=== PATIENT | male | born 1965 | race Caucasian/White ===

== ENCOUNTER 2022-08-20 05:21 | Inpatient (IN) | payer BC ==
[~2022-08-20] VITALS: Ht 188 cm; Wt 154.2 kg
[2022-08-20 05:48] VITALS: BP_SYST 127
[2022-08-20] MEDS ORDERED: NACL 0.9% 1,000 ML IV ONE (06:30)
[2022-08-20] MEDS ORDERED: MORPHINE 4 MG INJ. 4 MG/ML VIAL IVP ONE (06:30)
[2022-08-20] MEDS ORDERED: ONDANSETRON HCL 4 MG/2 ML VIAL ONE (06:44)
[2022-08-20] MEDS ORDERED: ONDANSETRON HCL 4 MG/2 ML VIAL IVP ONE (06:45)
[2022-08-20 07:01] LABS: BASOPHILS % (AUTO) 0.1 % (0.0-2.0); EOSINOPHILS % (AUTO) 0.1 % (0.0-4.0); HEMATOCRIT 44.1 % (36-54); LYMPHOCYTES % (AUTO) 7.8 % (20.5-51.5); MEAN CORPUSCULAR HEMOGLOBIN 30 pg (27-31); MEAN CORPUSCULAR HGB CONC 34 % (32-36); MEAN CORPUSCULAR VOLUME 87 fL (79.0-98.0); MONOCYTES # (AUTO) 2.5 K/uL (0.0-1.0); NEUTROPHILS # (AUTO) 9.6 K/uL (1.8-7.7); PLATELET COUNT (AUTO) 291 K/uL (130-430); RED BLOOD CELL COUNT(AUTO) 5.07 MIL/uL (4.2-6.2); RED CELL DISTRIBUTION WIDTH 15.6 % (9.0-15.0); WHITE BLOOD COUNT (AUTO) 13.2 K/uL (4.8-10.8)
[2022-08-20 07:04] LABS: CALCIUM 8.9 mg/dL (8.4-11.0); CREATININE 1.4 mg/dL (0.55-1.30)
[2022-08-20 07:08] LABS: ALBUMIN 3.2 g/dL (3.4-4.8); TOTAL BILIRUBIN 1.3 mg/dL (0.0-1.0)
[2022-08-20] MEDS ORDERED: fentaNYL CITRATE/PF 100 MCG/2 ML AMP IVP ONE (09:00)
[2022-08-20] MEDS ORDERED: MIDAZOLAM HCL 5 MG/5 ML VIAL IVP ONE (09:30)
[2022-08-20] MEDS ORDERED: D5/0.45 NS 1,000 ML IV ONE (09:45)
[2022-08-20] MEDS ORDERED: NALOXONE HCL 0.4 MG/ML AMP (NARCAN) IVP PRN ×6 (11:15→14:15)
[2022-08-20] MEDS ORDERED: MORPHINE 4 MG INJ. 4 MG/ML VIAL IVP PRN (11:15)
[2022-08-20] MEDS ORDERED: ONDANSETRON HCL 4 MG/2 ML VIAL IVP PRN ×2 (11:15→14:15)
[2022-08-20 11:46] VITALS: BP_SYST 113
[2022-08-20 11:55] LABS: PROTHROMBIN TIME 10.9 SECS (9.5-12.5)
[2022-08-20] MEDS ORDERED: PHENYLEPHRINE HCL 10 MG/ML VIAL (NEOSYNEPHRINE) ONE (12:00)
[2022-08-20] MEDS ORDERED: LR 1,000 ML IV.SOLN IV ONE (12:00)
[2022-08-20] MEDS ORDERED: ROCURONIUM BROMIDE 10 MG/ML (ZEMURON) ONE (12:00)
[2022-08-20] MEDS ORDERED: SUGAMMADEX SODIUM 200 MG/2 ML VIAL IV ONE (12:00)
[2022-08-20] MEDS ORDERED: ePHEDrine sulfate 50 MG/ML VIAL ONE (12:00)
[2022-08-20] MEDS ORDERED: HYDROmorphone 2 MG/ML VIAL ONE (12:00)
[2022-08-20] MEDS ORDERED: BUPIVACAINE /EPINEPHRINE/PF 0.25% 30 ML VIAL ONE (12:00)
[2022-08-20] MEDS ORDERED: NS IRRIG SOLN 1000 ML IR ONE (12:00)
[2022-08-20] MEDS ORDERED: DEXAMETHASONE SOD PHOSPHATE 4 MG/ML VIAL ONE (12:00)
[2022-08-20] MEDS ORDERED: SUCCINYLCHOLINE CHLORIDE 20 MG/ML(QUELICIN) ONE (12:00)
[2022-08-20] MEDS ORDERED: SEVOFLURANE 15 MIN GAS INH ONE (12:00)
[2022-08-20] MEDS ORDERED: ceFAZolin SODIUM 1 GM VIAL ONE (12:00)
[2022-08-20] MEDS ORDERED: PROPOFOL 200MG/ 20ML VIAL (DIPRIVAN) IV ONE (12:00)
[2022-08-20 12:01] LABS: BILIRUBIN,URINE NEGATIVE (NEGATIVE); CLARITY/URINE CLEAR (CLEAR); COLOR,URINE YELLOW (YELLOW); GLUCOSE,URINE NEGATIVE (NEGATIVE); KETONES,URINE TRACE (NEGATIVE); LEUKOCYTE ESTERASE ,URINE NEGATIVE (NEGATIVE); NITRITE, URINE NEGATIVE (NEGATIVE); PROTEIN URINE NEGATIVE (NEGATIVE); UROBILINOGEN,URINE 0.2 (0.2-1.0)
[2022-08-20 12:18] LABS: BLOOD, URINE TRACE (NEGATIVE)
[2022-08-20 12:20] LABS: BACTERIA,URINE None Seen /HPF (None Seen); WBC,URINE 0-3 /HPF (0-3)
[2022-08-20] MEDS ORDERED: HYDROmorphone 2 MG/ML VIAL IVP PRN (14:15)
[2022-08-20] MEDS ORDERED: LR 1,000 ML IV SCH (14:15)
[2022-08-20] MEDS ORDERED: HYDROmorphone 1 MG/ML INJ. CARTRIDGE IVP PRN ×2 (14:15)
[2022-08-20 14:32] VITALS: BP_SYST 119
[2022-08-20] MEDS ORDERED: HYDROmorphone 1 MG/ML INJ. CARTRIDGE ONE (14:45)
[2022-08-20 16:00] VITALS: BP_SYST 117
[2022-08-20] MEDS: CEFAZOLIN 1 GM IVPB PREMIX 50 ML IV SCH ×2 (16:40→22:01)
[2022-08-20] MEDS: D5NS 1,000 ML IV SCH (16:44)
[2022-08-20] MEDS: MORPHINE 2 MG/ML INJ. SYRINGE IVP PRN ×2 (17:55→22:17)
[2022-08-20 20:00] VITALS: BP_SYST 145
[2022-08-20] MEDS: HYDROmorphone 1 MG/ML INJ. CARTRIDGE IVP PRN (20:01)
[2022-08-20] MEDS: ONDANSETRON HCL 4 MG/2 ML VIAL IVP PRN (22:21)
[2022-08-21] MEDS: HYDROmorphone 1 MG/ML INJ. CARTRIDGE IVP PRN ×2 (00:21→08:51)
[2022-08-21 00:27] VITALS: BP_SYST 124
[2022-08-21] MEDS: MORPHINE 2 MG/ML INJ. SYRINGE IVP PRN ×3 (05:12→21:31)
[2022-08-21] MEDS: ONDANSETRON HCL 4 MG/2 ML VIAL IVP PRN ×4 (05:13→21:32)
[2022-08-21 07:28] LABS: HEMATOCRIT 40.5 % (36-54); HEMOGLOBIN 13.8 g/dL (14.0-18.0); MEAN CORPUSCULAR HEMOGLOBIN 30 pg (27-31); MEAN CORPUSCULAR HGB CONC 34 % (32-36); MEAN CORPUSCULAR VOLUME 88 fL (79.0-98.0); PLATELET COUNT (AUTO) 274 K/uL (130-430); RED BLOOD CELL COUNT(AUTO) 4.64 MIL/uL (4.2-6.2); RED CELL DISTRIBUTION WIDTH 16.1 % (9.0-15.0); WHITE BLOOD COUNT (AUTO) 6.8 K/uL (4.8-10.8)
[2022-08-21 08:09] VITALS: BP_SYST 124
[2022-08-21 08:27] LABS: ALBUMIN 2.5 g/dL (3.4-4.8); CALCIUM 8.2 mg/dL (8.4-11.0); CREATININE 1.04 mg/dL (0.55-1.30); PHOSPHORUS 2.8 mg/dL (2.7-4.5); TOTAL BILIRUBIN 1.4 mg/dL (0.0-1.0)
[2022-08-21] MEDS: D5NS 1,000 ML IV SCH ×2 (08:56→21:31)
[2022-08-21 09:52] LABS: BAND % (MANUAL) 22 % (0-6); BASOPHILS % (MANUAL) 0 % (0-2); EOSINOPHILS % (MANUAL) 0 % (0-7); LYMPHOCYTES % (MANUAL) 23 % (20-46); MONOCYTES % (MANUAL) 3 % (0-11)
[2022-08-21 11:54] VITALS: BP_SYST 117
[2022-08-21] MEDS: HYDROcodone/ACETAMIN 5-325 MG TAB (NORCO/ VICODIN) PO PRN (16:43)
[2022-08-21] MEDS ORDERED: ACETAMINOPHEN 325 MG TABLET PO PRN ×2 (16:45→17:00)
[2022-08-21 16:50] VITALS: BP_SYST 120
[2022-08-21 20:00] VITALS: BP_SYST 129
[2022-08-22 03:00] VITALS: BP_SYST 129
[2022-08-22] MEDS: OXYCODONE/ACETAMINOPHEN 5-325 TABLET PO PRN ×2 (03:35→21:29)
[2022-08-22] MEDS: D5NS 1,000 ML IV SCH (06:15)
[2022-08-22 07:02] LABS: CALCIUM 7.2 mg/dL (8.4-11.0); CREATININE 0.95 mg/dL (0.55-1.30)
[2022-08-22 07:14] LABS: BASOPHILS % (AUTO) 0.1 % (0.0-2.0); EOSINOPHILS # (AUTO) 0.1 K/uL (0.0-0.4); EOSINOPHILS % (AUTO) 1.4 % (0.0-4.0); HEMATOCRIT 37.1 % (36-54); HEMOGLOBIN 12.6 g/dL (14.0-18.0); LYMPHOCYTES # (AUTO) 0.8 K/uL (1.0-5.5); MEAN CORPUSCULAR HEMOGLOBIN 30 pg (27-31); MEAN CORPUSCULAR HGB CONC 34 % (32-36); MEAN CORPUSCULAR VOLUME 87 fL (79.0-98.0); MONOCYTES # (AUTO) 1.6 K/uL (0.0-1.0); MONOCYTES % (AUTO) 18.5 % (1.7-9.3); NEUTROPHILS # (AUTO) 6.3 K/uL (1.8-7.7); PLATELET COUNT (AUTO) 251 K/uL (130-430); RED BLOOD CELL COUNT(AUTO) 4.25 MIL/uL (4.2-6.2); RED CELL DISTRIBUTION WIDTH 15.6 % (9.0-15.0); WHITE BLOOD COUNT (AUTO) 8.8 K/uL (4.8-10.8)
[2022-08-22 08:00] VITALS: BP_SYST 132
[2022-08-22] MEDS: HYDROcodone/ACETAMIN 5-325 MG TAB (NORCO/ VICODIN) PO PRN ×3 (08:34→13:34)
[2022-08-22 10:47] VITALS: BP_SYST 132
[2022-08-22 12:00] VITALS: BP_SYST 124
[2022-08-22] MEDS: PIPERACILLIN/TAZO 3.375/DEX-IS 50 ML IV SCH ×2 (13:00→18:51)
[2022-08-22 20:00] VITALS: BP_SYST 129
[2022-08-23] MEDS: PIPERACILLIN/TAZO 3.375/DEX-IS 50 ML IV SCH ×4 (00:38→17:42)
[2022-08-23 00:39] VITALS: BP_SYST 123
[2022-08-23] MEDS: ONDANSETRON HCL 4 MG/2 ML VIAL IVP PRN (00:39)
[2022-08-23] MEDS: MORPHINE 2 MG/ML INJ. SYRINGE IVP PRN (00:42)
[2022-08-23] MEDS: OXYCODONE/ACETAMINOPHEN 5-325 TABLET PO PRN ×4 (06:16→19:34)
[2022-08-23] MEDS: D5NS 1,000 ML IV SCH ×2 (06:20→09:29)
[2022-08-23] MEDS ORDERED: POTASSIUM CHLORIDE 20 MEQ TAB.PRT.SR PO ONE (06:45)
[2022-08-23 07:32] LABS: HEMATOCRIT 38.4 % (36-54); WHITE BLOOD COUNT (AUTO) 10.5 K/uL (4.8-10.8)
[2022-08-23 07:45] LABS: BASOPHILS % (AUTO) 0.2 % (0.0-2.0); EOSINOPHILS # (AUTO) 0.2 K/uL (0.0-0.4); EOSINOPHILS % (AUTO) 2.1 % (0.0-4.0); HEMOGLOBIN 12.8 g/dL (14.0-18.0); LYMPHOCYTES # (AUTO) 0.9 K/uL (1.0-5.5); LYMPHOCYTES % (AUTO) 8.7 % (20.5-51.5); MEAN CORPUSCULAR HEMOGLOBIN 29 pg (27-31); MEAN CORPUSCULAR HGB CONC 33 % (32-36); MEAN CORPUSCULAR VOLUME 88 fL (79.0-98.0); MONOCYTES # (AUTO) 1.4 K/uL (0.0-1.0); MONOCYTES % (AUTO) 13.5 % (1.7-9.3); NEUTROPHILS # (AUTO) 7.9 K/uL (1.8-7.7); NEUTROPHILS % (AUTO) 75.5 % (40.0-70.0); PLATELET COUNT (AUTO) 290 K/uL (130-430); RED BLOOD CELL COUNT(AUTO) 4.36 MIL/uL (4.2-6.2); RED CELL DISTRIBUTION WIDTH 15.5 % (9.0-15.0)
[2022-08-23 08:02] VITALS: BP_SYST 133
[2022-08-23 08:28] LABS: CREATININE 0.88 mg/dL (0.55-1.30)
[2022-08-23 08:48] LABS: ERYTHROCYTE SEDIMENTATION RATE 78 MM/HR (0-15)
[2022-08-23 10:09] LABS: C-REACTIVE PROTEIN QUANT 28.6 mg/dL (0-0.5)
[2022-08-23 11:34] VITALS: BP_SYST 135
[2022-08-23 15:28] VITALS: BP_SYST 130
[2022-08-23] MEDS ORDERED: ALBUTEROL SULFATE 0.083% 2.5 MG/3 ML VIAL.NEB INH PRN (16:00)
[2022-08-23 20:00] VITALS: BP_SYST 126
[2022-08-24] MEDS: PIPERACILLIN/TAZO 3.375/DEX-IS 50 ML IV SCH ×2 (00:17→05:22)
[2022-08-24] MEDS: OXYCODONE/ACETAMINOPHEN 5-325 TABLET PO PRN ×4 (00:17→16:09)
[2022-08-24] MEDS: D5NS 1,000 ML IV SCH ×3 (00:18→20:41)
[2022-08-24 00:48] VITALS: BP_SYST 132
[2022-08-24 07:00] LABS: BASOPHILS % (AUTO) 0.3 % (0.0-2.0); EOSINOPHILS # (AUTO) 0.3 K/uL (0.0-0.4); EOSINOPHILS % (AUTO) 3.3 % (0.0-4.0); HEMATOCRIT 36.6 % (36-54); HEMOGLOBIN 12.4 g/dL (14.0-18.0); LYMPHOCYTES % (AUTO) 10.3 % (20.5-51.5); MEAN CORPUSCULAR HEMOGLOBIN 30 pg (27-31); MEAN CORPUSCULAR HGB CONC 34 % (32-36); MEAN CORPUSCULAR VOLUME 88 fL (79.0-98.0); MONOCYTES # (AUTO) 1.3 K/uL (0.0-1.0); MONOCYTES % (AUTO) 13.2 % (1.7-9.3); NEUTROPHILS # (AUTO) 7.3 K/uL (1.8-7.7); NEUTROPHILS % (AUTO) 72.9 % (40.0-70.0); PLATELET COUNT (AUTO) 284 K/uL (130-430); RED BLOOD CELL COUNT(AUTO) 4.14 MIL/uL (4.2-6.2); RED CELL DISTRIBUTION WIDTH 15.7 % (9.0-15.0)
[2022-08-24 07:29] VITALS: BP_SYST 149
[2022-08-24 07:42] LABS: CALCIUM 8.2 mg/dL (8.4-11.0); CREATININE 0.93 mg/dL (0.55-1.30)
[2022-08-24 08:07] LABS: C-REACTIVE PROTEIN QUANT 23.7 mg/dL (0-0.5)
[2022-08-24 08:23] LABS: ERYTHROCYTE SEDIMENTATION RATE 84 MM/HR (0-15)
[2022-08-24] MEDS ORDERED: POTASSIUM CHLORIDE 20 MEQ TAB.PRT.SR PO ONE (09:45)
[2022-08-24] MEDS ORDERED: OXYC-128 PO ×2 (09:46)
[2022-08-24] MEDS ORDERED: HYDR-3919 PO ×2 (09:46)
[2022-08-24] MEDS ORDERED: LEVO750T64 PO ×2 (09:46)
[2022-08-24 12:00] VITALS: BP_SYST 154
[2022-08-24] MEDS: ONDANSETRON HCL 4 MG/2 ML VIAL IVP PRN (13:40)
[2022-08-24 16:22] VITALS: BP_SYST 155
[2022-08-24] MEDS ORDERED: traZODone HCL 50 MG TABLET (DESYREL) PO PRN (16:45)
[2022-08-24] MEDS: LACTOBACILLUS RHAMNOSUS GG 1 CAP CAPSULE PO SCH (20:40)
[2022-08-24 20:41] VITALS: BP_SYST 127
[2022-08-25] VITALS: BP_SYST 135
[2022-08-25] MEDS: HYDROcodone/ACETAMIN 5-325 MG TAB (NORCO/ VICODIN) PO PRN ×2 (03:52→10:53)
[2022-08-25 07:21] LABS: BASOPHILS % (AUTO) 0.2 % (0.0-2.0); EOSINOPHILS # (AUTO) 0.3 K/uL (0.0-0.4); EOSINOPHILS % (AUTO) 2.9 % (0.0-4.0); HEMATOCRIT 36.7 % (36-54); HEMOGLOBIN 12.2 g/dL (14.0-18.0); MEAN CORPUSCULAR HEMOGLOBIN 30 pg (27-31); MEAN CORPUSCULAR HGB CONC 33 % (32-36); MEAN CORPUSCULAR VOLUME 89 fL (79.0-98.0); MONOCYTES % (AUTO) 9.3 % (1.7-9.3); NEUTROPHILS # (AUTO) 8.1 K/uL (1.8-7.7); PLATELET COUNT (AUTO) 297 K/uL (130-430); RED BLOOD CELL COUNT(AUTO) 4.12 MIL/uL (4.2-6.2); RED CELL DISTRIBUTION WIDTH 15.7 % (9.0-15.0); WHITE BLOOD COUNT (AUTO) 10.4 K/uL (4.8-10.8)
[2022-08-25 07:49] VITALS: BP_SYST 112; BP_SYST 120
[2022-08-25 08:12] LABS: ALBUMIN 1.9 g/dL (3.4-4.8); C-REACTIVE PROTEIN QUANT 21.3 mg/dL (0-0.5); CALCIUM 8.3 mg/dL (8.4-11.0); CREATININE 0.89 mg/dL (0.55-1.30); TOTAL BILIRUBIN 0.7 mg/dL (0.0-1.0)
[2022-08-25] MEDS: LACTOBACILLUS RHAMNOSUS GG 1 CAP CAPSULE PO SCH (08:12)
[2022-08-25 08:16] LABS: NEUTROPHILS % (AUTO) 77.6 % (40.0-70.0)
[2022-08-25] MEDS ORDERED: LACT1CAP57 PO ×3 (09:57→15:00)
[2022-08-25] MEDS: OXYCODONE/ACETAMINOPHEN 5-325 TABLET PO PRN (10:25)
[2022-08-25 10:56] VITALS: BP_SYST 141
[2022-08-25 11:02] VITALS: BP_SYST 141
[2022-08-25 11:49] LABS: ERYTHROCYTE SEDIMENTATION RATE 85 MM/HR (0-15)
[2022-08-25] MEDS ORDERED: LEVO750T64 PO (15:00)
[2022-08-25] MEDS ORDERED: ONDA-8 TL (15:00)
[2022-08-25] MEDS ORDERED: OXYC-128 PO (15:00)
== END 2022-08-25 11:30 | disposition home or self-care (01) | DRG 853 ==
LOC: SED 05:21 → SMU 09:33 → STU 18:32 → SMU 08-22 11:12
PROVIDERS: ADMIT Preventive Medicine Preventive Medicine/Occupational Environmental Medicine; ATTEND Preventive Medicine Preventive Medicine/Occupational Environmental Medicine
PROC: 0DB80ZZ Excision of Small Intestine, Open Approach (ICD-10-PCS; 2022-08-20)
PROC: 0D9800Z Drainage of Small Intestine with Drainage Device, Open Approach (ICD-10-PCS; 2022-08-20)
PROC: 0DBU0ZZ Excision of Omentum, Open Approach (ICD-10-PCS; principal; 2022-08-20 11:45)
DX: A41.9 Sepsis, unspecified organism (principal); K55.029 Acute infarction of small intestine, extent unspecified; K42.0 Umbilical hernia with obstruction, without gangrene; K56.609 Unspecified intestinal obstruction, unspecified as to partial versus complete obstruction; L03.90 Cellulitis, unspecified; Z68.41 Body mass index [BMI] 40.0-44.9, adult; E88.09 Other disorders of plasma-protein metabolism, not elsewhere classified; K76.0 Fatty (change of) liver, not elsewhere classified; I10 Essential (primary) hypertension; G47.33 Obstructive sleep apnea (adult) (pediatric); E66.01 Morbid (severe) obesity due to excess calories; E87.6 Hypokalemia; E83.51 Hypocalcemia; Z20.822 Contact with and (suspected) exposure to COVID-19
CPT/HCPCS: 36415; 71045; 76376; 80048; 80053; 81000; 83605; 83690; 83735; 84100; 85007; 85025; 85027; 85610-TC; 85651-TC; 85730-TC; 86140; 86886; 86900; 86901; 87040; 87070-TC; 87075-TC; 87081; 88302; 88304; 88305; 88307; 93005; 94640; 94760; 96361; 96374; 96375; 99285; G0378; J0330; J0690; J1100; J1170; J1956; J2250; J2270; J2370; J2405; J2543; J2704; J3010; J3490; J7042; J7060; J7120; J7613; Q9967

== ENCOUNTER 2022-09-07 13:49 | Emergency (ER) | payer BC ==
[~2022-09-07] VITALS: Ht 188 cm; Wt 154.2 kg
[~2022-09-07 13:49] MED LIST: LACT1CAP57 PO; LEVO750T64 PO; ONDA-8 TL; OXYC-128 PO
[2022-09-07 14:33] VITALS: BP_SYST 110
--- NOTE | 2022-09-07 15:39 | NUR ---
Patient to [facility] for evaluation.
--- NOTE | 2022-09-07 15:47 | NUR ---
PATIENT BROUGHT IN COMPLAINING OF POSTOPERATIVE DRAINAGE AFTER 2 WEEKS MIDLINE HERNIA REPAIR. PATIENT WAS SENT BY MD FOR BASIC LAB WORK AND ABDOMINAL CT. AFEBRILE. DENIES ANY PAIN.
--- NOTE | 2022-09-07 17:04 | NUR ---
ER at bedside examining patient.
--- NOTE | 2022-09-07 17:45 | NUR ---
# 22 gauge angiocath placed to RIGHT HAND. Use of asceptic technique. Opsite placed over site. Blood return noted. Blood for lab drawn from site. Flushed with 10 cc of normal saline. No evidence of infiltration noted. Patient tolerated well.
[2022-09-07 18:10] LABS: BASOPHILS # (AUTO) 0.1 K/uL (0.0-0.2); BASOPHILS % (AUTO) 0.7 % (0.0-2.0); EOSINOPHILS # (AUTO) 0.1 K/uL (0.0-0.4); EOSINOPHILS % (AUTO) 0.6 % (0.0-4.0); HEMATOCRIT 40.7 % (36-54); HEMOGLOBIN 13.7 g/dL (14.0-18.0); LYMPHOCYTES # (AUTO) 1.8 K/uL (1.0-5.5); LYMPHOCYTES % (AUTO) 15.2 % (20.5-51.5); MEAN CORPUSCULAR HEMOGLOBIN 30 pg (27-31); MEAN CORPUSCULAR HGB CONC 34 % (32-36); MEAN CORPUSCULAR VOLUME 88 fL (79.0-98.0); MONOCYTES % (AUTO) 8.6 % (1.7-9.3); NEUTROPHILS % (AUTO) 74.9 % (40.0-70.0); PLATELET COUNT (AUTO) 365 K/uL (130-430); RED BLOOD CELL COUNT(AUTO) 4.62 MIL/uL (4.2-6.2); RED CELL DISTRIBUTION WIDTH 15.9 % (9.0-15.0); WHITE BLOOD COUNT (AUTO) 11.9 K/uL (4.8-10.8)
[2022-09-07 18:29] LABS: CREATININE 1.13 mg/dL (0.55-1.30)
[2022-09-07 18:41] LABS: ALBUMIN 2.9 g/dL (3.4-4.8); C-REACTIVE PROTEIN QUANT 0.6 mg/dL (0-0.5); TOTAL BILIRUBIN 0.5 mg/dL (0.0-1.0)
[2022-09-07 18:59] LABS: ERYTHROCYTE SEDIMENTATION RATE 33 MM/HR (0-15)
[2022-09-07] MEDS ORDERED: SULF1TAB48 PO (19:03)
[2022-09-07] MEDS ORDERED: AMLO1CAP59 PO (19:06)
[2022-09-07 20:01] VITALS: BP_SYST 112
--- NOTE | 2022-09-07 20:01 | NUR ---
Patient given written and verbal discharge instructions and verbalizes understanding. ER MD discussed with patient the results and treatment provided. Patient in stable condition. ID arm band removed. IV catheter removed intact and dressing applied, no active bleeding. NO RX GIVEN. Patient educated on pain management and to follow up with PMD. Pain Scale 0/10 Opportunity for questions provided and answered.
[2022-09-08] MEDS ORDERED: SULF1TAB48 PO (15:23)
== END 2022-09-07 20:01 | disposition home or self-care (01) ==
LOC: SED 13:49
DX: Z48.815 Encounter for surgical aftercare following surgery on the digestive system (principal); R10.9 Unspecified abdominal pain; Z79.899 Other long term (current) drug therapy; Z20.822 Contact with and (suspected) exposure to COVID-19
CPT/HCPCS: 36415; 76376; 80053; 83605; 85025; 85651-TC; 86140; 87040; 99284

== ENCOUNTER 2022-09-08 12:08 | Emergency (ER) | payer BC ==
[~2022-09-08] VITALS: Ht 188 cm; Wt 154.2 kg
[~2022-09-08 12:08] MED LIST changes: +AMLO1CAP59 PO; +SULF1TAB48 PO
[2022-09-08 12:14] VITALS: BP_SYST 132
--- NOTE | 2022-09-08 13:19 | NUR ---
DR JOHNSON IN TRIAGE FOR EXAM
--- NOTE | 2022-09-08 14:33 | NUR ---
Patient to ER bed H3 to gown for evaluation. Side rails up. Report given to SEAN KRUEGER.
--- NOTE | 2022-09-08 15:00 | NUR ---
OSTOMY BAG PLACED OVER WOUND PER MD INSTRUCTION, PT TOLERATED WELL
[2022-09-08] MEDS ORDERED: SULF1TAB48 PO (15:23)
[2022-09-08 15:38] VITALS: BP_SYST 132
--- NOTE | 2022-09-08 15:39 | NUR ---
Patient given written and verbal discharge instructions and verbalizes understanding. ER MD discussed with patient the results and treatment provided. Patient in stable condition. ID arm band removed. Rx of BACTRIM given. Patient educated on pain management and to follow up with PMD. Pain Scale 0/10. Opportunity for questions provided and answered. Medication side effect fact sheet provided.
== END 2022-09-08 15:39 | disposition home or self-care (01) ==
LOC: SED 12:08
DX: K12.2 Cellulitis and abscess of mouth (principal); K63.2 Fistula of intestine; Z79.899 Other long term (current) drug therapy
CPT/HCPCS: 99283